=== PATIENT | female | born 1960 | race Caucasian/White ===

== ENCOUNTER 2017-02-04 11:24 | Emergency (ER) | payer MEDICARE ==
[2017-02-25] MEDS ORDERED: ASPIR 8181 MG PO (15:28)
[2017-02-25] MEDS ORDERED: NOVOLOG 10100 UNITS1 INJ (15:47)
[2017-03-09] MEDS ORDERED: LEVEMIR100 UNIT/1 SC (16:12)
[2017-03-09] MEDS ORDERED: BACTROBAN OINT22 GM EXT (16:14)
[2017-03-09] MEDS ORDERED: DAKIN'S SOLUTI500 ML EXT (16:16)
[2017-03-09] MEDS ORDERED: NORCO 5-325 TA1 EACH PO (16:17)
[2017-03-09] MEDS ORDERED: CLINDAMYCIN HC300 MG PO (16:18)
[2017-03-09] MEDS ORDERED: NORVASC 5 MG TAB5 MG PO (16:26)
== END 2017-02-04 12:07 | disposition home or self-care (01) ==
LOC: ER1 11:24
DX: J06.9 Acute upper respiratory infection, unspecified (principal); I10 Essential (primary) hypertension; Z88.0 Allergy status to penicillin
CPT/HCPCS: 99282

== ENCOUNTER 2020-09-14 01:19 | Inpatient (IN) | payer OTHER ==
[~2020-09-14] VITALS: Ht 149.9 cm; Wt 50.8 kg
[~2020-09-14 01:19] MED LIST: ASPIR 8181 MG PO; BACTROBAN OINT22 GM EXT; CLINDAMYCIN HC300 MG PO; LEVEMIR100 UNIT/1 SC; NORCO 5-325 TA1 EACH PO; NORVASC 5 MG TAB5 MG PO; NOVOLOG 10100 UNITS1 INJ; TAMIFLU75 MG PO; ZOFRAN4 MG PO
[2020-09-14 01:43] LABS: HEMOGLOBIN 9.1 gm/dl (12.3-15.3); RED BLOOD COUNT 3.67 M/UL (4.00-5.10)
[2020-09-14 02:27] LABS: BUN/CREATININE RATIO 14 (0-10)
[2020-09-14] MEDS ORDERED: BUSPIRONE HCL5 MG PO (05:12)
[2020-09-14] MEDS ORDERED: ATORVASTATIN CA40 MG PO (05:13)
[2020-09-14] MEDS ORDERED: FERROUS SULFAT325 M2 PO (05:13)
[2020-09-14] MEDS ORDERED: METFORMIN HCL500 MG PO (05:13)
[2020-09-14] MEDS ORDERED: HYDRALAZINE HCL10 MG PO (05:14)
[2020-09-14] MEDS ORDERED: LOSARTAN POTASS50 MG PO (05:15)
[2020-09-14] MEDS ORDERED: K-DUR TAB 20 M20 MEQ PO (05:15)
[2020-09-14] MEDS ORDERED: PROTONIX 40 MG40 M1 PO (05:16)
[2020-09-14] MEDS ORDERED: CEFUROXIME500 MG PO (15:08)
[2020-09-23] MEDS ORDERED: METOPROLOL SUCC25 MG PO (12:30)
[2020-09-23] MEDS ORDERED: LASIX 40 MG TAB40 MG PO (12:34)
[2020-09-23] MEDS ORDERED: DOXYCYCLINE HY100 MG PO (13:00)
== END 2020-09-14 18:37 | disposition home or self-care (01) | DRG 871 ==
LOC: ER1 01:19 → MED SURG 4 02:58 → CDU 02:58 → MED SURG 4 04:18
PROVIDERS: Physician Assistant; ADMIT Internal Medicine
DX: A41.9 Sepsis, unspecified organism (principal); J18.9 Pneumonia, unspecified organism; J90 Pleural effusion, not elsewhere classified; E11.649 Type 2 diabetes mellitus with hypoglycemia without coma; E87.6 Hypokalemia; T68.XXXA Hypothermia, initial encounter; D64.9 Anemia, unspecified; Z20.822 Contact with and (suspected) exposure to COVID-19; Z79.4 Long term (current) use of insulin; Z88.0 Allergy status to penicillin; Z98.890 Other specified postprocedural states
CPT/HCPCS: 36600; 71045; 80053; 82803; 82962; 83036; 83605; 85025; 87040; 87635; 93005; 96374; 99285; J0456; J0692; J0696; J1650; J3480; J7030

== ENCOUNTER 2020-09-21 11:13 | Inpatient (IN) | payer OTHER ==
[~2020-09-21] VITALS: Ht 152.4 cm; Wt 49.9 kg
[~2020-09-21 11:13] MED LIST changes: +ATORVASTATIN CA40 MG PO; +BUSPIRONE HCL5 MG PO; +CEFUROXIME500 MG PO; +FERROUS SULFAT325 M2 PO; +HYDRALAZINE HCL10 MG PO; +K-DUR TAB 20 M20 MEQ PO; +LOSARTAN POTASS50 MG PO; +METFORMIN HCL500 MG PO; +PROTONIX 40 MG40 M1 PO
[2020-09-21 11:54] LABS: HEMOGLOBIN 9.4 gm/dl (12.3-15.3); RED BLOOD COUNT 3.84 M/UL (4.00-5.10); WHITE BLOOD COUNT 11.3 K/UL (4.5-11.0)
[2020-09-21 12:19] LABS: BUN/CREATININE RATIO 14 (0-10)
[2020-09-21] MEDS ORDERED: BASAGLAR K100 UNIT/1 SC (13:56)
[2020-09-21] MEDS ORDERED: DAKIN'S473 M1 EXT (16:16)
[2020-09-22 02:34] LABS: HEMOGLOBIN 8.6 gm/dl (12.3-15.3); RED BLOOD COUNT 3.49 M/UL (4.00-5.10); WHITE BLOOD COUNT 16.1 K/UL (4.5-11.0)
[2020-09-22 03:06] LABS: BUN/CREATININE RATIO 15 (0-10)
[2020-09-22 12:14] LABS: C-PEPTIDE, SERUM 0.4 ng/mL (1.1-4.4); INSULIN 1.5 uIU/mL (2.6-24.9)
[2020-09-23 03:16] LABS: HEMOGLOBIN 8.7 gm/dl (12.3-15.3); RED BLOOD COUNT 3.62 M/UL (4.00-5.10); WHITE BLOOD COUNT 12.3 K/UL (4.5-11.0)
[2020-09-23] MEDS ORDERED: METOPROLOL SUCC25 MG PO (12:30)
[2020-09-23] MEDS ORDERED: LASIX 40 MG TAB40 MG PO (12:34)
[2020-09-23] MEDS ORDERED: DOXYCYCLINE HY100 MG PO (13:00)
--- NOTE | 2020-09-23 14:24 | NUR ---
PATIENT PRESENTLY ON 2-4L/NC O2 IN ROOM SHE HAS BEEN DISCHARGED. O2/NC REMOVED WHILE PATIENT SITTING IN BED. HER O2 SATS DROP TO 84%. PATIENT STATES SHE FEELS SHORT OF BREATH. HER O2 AT 2L/NC IS REPLACED, PATIENT O2 SATS INCREASE TO 90%.
== END 2020-09-23 16:30 | disposition home or self-care (01) | DRG 193 ==
LOC: ER1 11:13 → CDU 13:18 → PROG CARE 22:15
PROVIDERS: Family Medicine; Physician Assistant; ADMIT Internal Medicine
DX: J18.9 Pneumonia, unspecified organism (principal); J96.01 Acute respiratory failure with hypoxia; J90 Pleural effusion, not elsewhere classified; I50.20 Unspecified systolic (congestive) heart failure; T68.XXXA Hypothermia, initial encounter; E11.649 Type 2 diabetes mellitus with hypoglycemia without coma; E87.6 Hypokalemia; E83.42 Hypomagnesemia; I11.0 Hypertensive heart disease with heart failure; I25.10 Atherosclerotic heart disease of native coronary artery without angina pectoris; Z98.61 Coronary angioplasty status; E11.621 Type 2 diabetes mellitus with foot ulcer; L97.519 Non-pressure chronic ulcer of other part of right foot with unspecified severity; Z20.822 Contact with and (suspected) exposure to COVID-19; D53.9 Nutritional anemia, unspecified; Z79.899 Other long term (current) drug therapy; Z79.82 Long term (current) use of aspirin; Z88.0 Allergy status to penicillin; Z79.84 Long term (current) use of oral hypoglycemic drugs
CPT/HCPCS: ECHO; 36600; 71045; 80053; 81001; 82607; 82803; 82962; 83605; 83735; 83880; 84100; 84134; 84439; 84443; 84681; 85025; 85610; 87040; 87086; 93005; 93306; 96365; 96366; 96372; 96375; 96376; 99285; J0696; J1650; J1940; J7030; J7042; U0002

== ENCOUNTER 2020-11-18 08:50 | Inpatient (IN) | payer OTHER ==
[~2020-11-18] VITALS: Ht 167.6 cm; Wt 44.1 kg
[~2020-11-18 08:50] MED LIST changes: +BASAGLAR K100 UNIT/1 SC; +DAKIN'S473 M1 EXT; +DOXYCYCLINE HY100 MG PO; +LASIX 40 MG TAB40 MG PO; +METOPROLOL SUCC25 MG PO
[2020-11-18 10:07] LABS: HEMOGLOBIN 10.7 gm/dl (12.3-15.3); RED BLOOD COUNT 4.71 M/UL (4.00-5.10); WHITE BLOOD COUNT 8.8 K/UL (4.5-11.0)
[2020-11-18 10:51] LABS: BUN/CREATININE RATIO 10 (0-10)
--- NOTE | 2020-11-18 18:54 | NUR ---
11/18/20 1310 TRACIE HUGGER PLACED ON PATIENT.
[2020-11-19 02:52] LABS: HEMOGLOBIN 9.5 gm/dl (12.3-15.3); RED BLOOD COUNT 4.29 M/UL (4.00-5.10); WHITE BLOOD COUNT 10.2 K/UL (4.5-11.0)
--- NOTE | 2020-11-20 01:06 | NUR ---
PATIENTS TEMP AT THE BEGINNING OF SHIFT 95.6 RECTAL. ADDED TEMP SENSING CORD TO STARK FOR CONTINOUS MONITORING. TRACIE DIAZ PLACED BACK ON THE PATIENT WITH WARM BLANKETS.
[2020-11-20 03:10] LABS: HEMOGLOBIN 8.9 gm/dl (12.3-15.3); RED BLOOD COUNT 3.98 M/UL (4.00-5.10); WHITE BLOOD COUNT 8.8 K/UL (4.5-11.0)
[2020-11-20 03:36] LABS: BUN/CREATININE RATIO 12 (0-10)
[2020-11-21 04:06] LABS: HEMOGLOBIN 9.7 gm/dl (12.3-15.3); RED BLOOD COUNT 4.31 M/UL (4.00-5.10); WHITE BLOOD COUNT 10.5 K/UL (4.5-11.0)
[2020-11-21 04:31] LABS: BUN/CREATININE RATIO 13 (0-10)
[2020-11-21 15:11] LABS: BORDETELLA PARAPERTUSSIS Not Detected (Not Detectd); BORDETELLA PERTUSSIS Not Detected (Not Detectd); CHLAMYDIA PNEUMONIAE Not Detected (Not Detectd); CORONAVIRUS HKU1 Not Detected (Not Detectd); CORONAVIRUS NL63 Not Detected (Not Detectd); CORONAVIRUS OC43 Not Detected (Not Detectd); CORONOAVIRUS 229E Not Detected (Not Detectd); HUMAN METAPNEUMOVIRUS Not Detected (Not Detectd); HUMAN RHINOVIRUS/ENTEROVIRUS Not Detected (Not Detectd); INFLUENZA A Not Detected (Not Detectd); INFLUENZA B Not Detected (Not Detectd); MYCOPLASMA PNEUMONIAE Not Detected (Not Detectd); PARAINFLUENZA VIRUS 1 Not Detected (Not Detectd); PARAINFLUENZA VIRUS 2 Not Detected (Not Detectd); PARAINFLUENZA VIRUS 3 Not Detected (Not Detectd); PARAINFLUENZA VIRUS 4 Not Detected (Not Detectd); RESPIRATORY SYNCYTIAL VIRUS Not Detected (Not Detectd)
[2020-11-21 16:40] LABS: SARS-CoV-2 NOT DETECTED (Not Detectd)
[2020-11-22 04:28] LABS: HEMOGLOBIN 9.1 gm/dl (12.3-15.3); RED BLOOD COUNT 4.05 M/UL (4.00-5.10); WHITE BLOOD COUNT 7.1 K/UL (4.5-11.0)
[2020-11-22 05:03] LABS: BUN/CREATININE RATIO 12 (0-10)
[2020-11-22 05:39] LABS: ADENOVIRUS F 40/41 Not Detected (Negative); ASTROVIRUS Not Detected (Negative); CAMPYLOBACTER Not Detected (Negative); CLOSTRIDIUM DIFFICILE TOX A/B Not Detected (Negative); CRYPTOSPORIDIUM Not Detected (Negative); E.COLI 0157 Not Detected (Negative); ENTAMOEBA HISTOLYTICA Not Detected (Negative); ENTEROAGGREGATIVE E.COLI (EAEC Not Detected (Negative); ENTEROPATHOGENIC E.COLI (EPEC) Not Detected (Negative); ENTEROTOXIGENIC E.COLI (ETEC) Not Detected (Negative); GIARDIA LAMBLIA Not Detected (Negative); NOROVIRUS GI/GII Not Detected (Negative); PLESIOMONAS SHIGELLOIDES Not Detected (Negative); ROTOVIRUS A Not Detected (Negative); SALMONELLA Not Detected (Negative); SAPOVIRUS Not Detected (Negative); SHIG/ENTEROINVAS.ECOLI (EIEC) Not Detected (Negative); SHIGA-LIK TOX.PRO.E.COLI (STEC Not Detected (Negative); VIBRIO Not Detected (Negative); VIBRIO CHOLERAE Not Detected (Negative); YERSINIA ENTEROCOLITICA Not Detected (Negative)
[2020-11-22 10:03] LABS: MONONUCLEAR CELLS 75.7 (75-100); POLYMORPHONUCLEAR % 24.3 (0-25); RBC (AUTOMATED) 100 (0-100000); WBC (AUTOMATED) 37 (0-500)
[2020-11-22 10:25] LABS: LDH, BODY FLUID 67 U/L; TOTAL PROTEIN, BODY FLUID 0.8 gm/dL
--- NOTE | 2020-11-22 11:27 | NUR ---
DR. WINTERS CALLED WITH NEW ORDERS TO HOLD PT NPO IN AM PER DR. LIVINGSTON PROCEDURE AND OTHER ORDERS NOTED
--- NOTE | 2020-11-22 14:29 | NUR ---
ON FLOOR AND PT STATES SHE NEVER CHOKED ON FOOD OR FLUID SO STATES TO DC ST CONSULT
[2020-11-23 02:47] LABS: HEMOGLOBIN 9.1 gm/dl (12.3-15.3); RED BLOOD COUNT 4.18 M/UL (4.00-5.10); WHITE BLOOD COUNT 7.1 K/UL (4.5-11.0)
[2020-11-23 03:40] LABS: BUN/CREATININE RATIO 12 (0-10)
[2020-11-24 03:55] LABS: HEMOGLOBIN 9.6 gm/dl (12.3-15.3); RED BLOOD COUNT 4.36 M/UL (4.00-5.10); WHITE BLOOD COUNT 8.2 K/UL (4.5-11.0)
[2020-11-24 04:09] LABS: BUN/CREATININE RATIO 11 (0-10)
[2020-11-25 02:50] LABS: HEMOGLOBIN 9.2 gm/dl (12.3-15.3); RED BLOOD COUNT 4.12 M/UL (4.00-5.10); WHITE BLOOD COUNT 8.7 K/UL (4.5-11.0)
--- NOTE | 2020-11-25 06:26 | NUR ---
PATIENT GOWN AND BED CHANGED. BUTTOCKS VERY RED, GROIN EXCORIATED. ALOE CREAM APPLIED TO THESE AREAS. PATIENT DENIES ANY PAIN. NO SORES PRESENT AT THIS TIME. PATIENT HAS HAD SMALL AMOUNT OF DIARRHEA TONIGHT.
--- NOTE | 2020-11-25 16:50 | NUR ---
ESTELLA AT [facility] CONTACTED AND GIVEN REPORT.
== END 2020-11-25 16:28 | disposition home or self-care (01) | DRG 291 ==
LOC: ER1 08:50 → PROG CARE 11:16 → CDU 11:16 → PROG CARE 13:30
PROVIDERS: Emergency Medicine; Physician Assistant Medical; ADMIT Internal Medicine
PROC: 0W993ZZ Drainage of Right Pleural Cavity, Percutaneous Approach (ICD-10-PCS; principal; 2020-11-22)
DX: I11.0 Hypertensive heart disease with heart failure (principal); E43 Unspecified severe protein-calorie malnutrition; J96.21 Acute and chronic respiratory failure with hypoxia; E11.52 Type 2 diabetes mellitus with diabetic peripheral angiopathy with gangrene; I96 Gangrene, not elsewhere classified; J90 Pleural effusion, not elsewhere classified; L97.419 Non-pressure chronic ulcer of right heel and midfoot with unspecified severity; K52.1 Toxic gastroenteritis and colitis; Z68.41 Body mass index [BMI] 40.0-44.9, adult; M86.8X7 Other osteomyelitis, ankle and foot; E11.69 Type 2 diabetes mellitus with other specified complication; E78.5 Hyperlipidemia, unspecified; I25.10 Atherosclerotic heart disease of native coronary artery without angina pectoris; E87.6 Hypokalemia; D50.9 Iron deficiency anemia, unspecified; E83.42 Hypomagnesemia; I50.23 Acute on chronic systolic (congestive) heart failure; Z20.822 Contact with and (suspected) exposure to COVID-19; I70.0 Atherosclerosis of aorta; E11.621 Type 2 diabetes mellitus with foot ulcer; I44.0 Atrioventricular block, first degree; T68.XXXA Hypothermia, initial encounter; T36.95XA Adverse effect of unspecified systemic antibiotic, initial encounter; E83.52 Hypercalcemia; E88.09 Other disorders of plasma-protein metabolism, not elsewhere classified; Z88.0 Allergy status to penicillin; Z79.4 Long term (current) use of insulin; Z79.82 Long term (current) use of aspirin; Z79.899 Other long term (current) drug therapy; Z87.891 Personal history of nicotine dependence; Z98.890 Other specified postprocedural states; Z88.1 Allergy status to other antibiotic agents; Z95.5 Presence of coronary angioplasty implant and graft
CPT/HCPCS: ECHO; 0240U; 36415; 36600; 70551; 71045; 71046; 71250; 80048; 80053; 81001; 82533; 82550; 82553; 82728; 82803; 82945; 82962; 83540; 83550; 83605; 83615; 83735; 83874; 83880; 83986; 84132; 84155; 84157; 84439; 84443; 84484; 85025; 85027; 86850; 86900; 86901; 87015; 87040; 87070; 87116; 87205; 87206; 87507; 87633; 89051; 93005; 93306; 93925; 94640; 94664; 94760; 96365; 96366; 96375; 97110-GP-CQ; 97116-GP-CQ; 97161; 99285; C1729; J0692; J1205; J1335; J1650; J1940; J2060; J2185; J3370; J3475; J3480; P9047

== ENCOUNTER 2021-01-29 22:19 | Emergency (ER) | payer OTHER ==
[2021-01-30 00:13] LABS: RED BLOOD COUNT 4.35 M/UL (4.00-5.10); WHITE BLOOD COUNT 7.9 K/UL (4.5-11.0)
[2021-01-30 00:56] LABS: BUN/CREATININE RATIO 17 (0-10)
[2021-01-30] MEDS ORDERED: LASIX40 MG PO (02:43)
== END 2021-01-30 03:48 | disposition home or self-care (01) ==
LOC: ER1 22:19
PROVIDERS: Family Medicine
DX: I50.9 Heart failure, unspecified (principal); Z88.0 Allergy status to penicillin; Z88.8 Allergy status to other drugs, medicaments and biological substances
CPT/HCPCS: 71045; 80053; 82550; 82553; 83874; 83880; 84484; 85025; 93005; 96374; 99285; J1940

== ENCOUNTER 2021-01-30 17:27 | Inpatient (IN) | payer OTHER ==
[~2021-01-30] VITALS: Ht 144.8 cm; Wt 53.7 kg
[~2021-01-30 17:27] MED LIST changes: +LASIX40 MG PO
[2021-01-30 18:07] LABS: HEMOGLOBIN 10.9 gm/dl (12.3-15.3); RED BLOOD COUNT 4.77 M/UL (4.00-5.10)
[2021-01-30 18:39] LABS: BUN/CREATININE RATIO 17 (0-10)
[2021-01-31 00:54] LABS: ADENOVIRUS F 40/41 Not Detected (Negative); ASTROVIRUS Not Detected (Negative); CAMPYLOBACTER Not Detected (Negative); CRYPTOSPORIDIUM Not Detected (Negative); E.COLI 0157 Not Detected (Negative); ENTAMOEBA HISTOLYTICA Not Detected (Negative); ENTEROAGGREGATIVE E.COLI (EAEC Not Detected (Negative); ENTEROPATHOGENIC E.COLI (EPEC) Not Detected (Negative); ENTEROTOXIGENIC E.COLI (ETEC) Not Detected (Negative); GIARDIA LAMBLIA Not Detected (Negative); NOROVIRUS GI/GII Not Detected (Negative); PLESIOMONAS SHIGELLOIDES Not Detected (Negative); ROTOVIRUS A Not Detected (Negative); SALMONELLA Not Detected (Negative); SAPOVIRUS Not Detected (Negative); SHIG/ENTEROINVAS.ECOLI (EIEC) Not Detected (Negative); SHIGA-LIK TOX.PRO.E.COLI (STEC Not Detected (Negative); VIBRIO Not Detected (Negative); VIBRIO CHOLERAE Not Detected (Negative); YERSINIA ENTEROCOLITICA Not Detected (Negative)
[2021-01-31 02:29] LABS: HEMOGLOBIN 9.7 gm/dl (12.3-15.3); RED BLOOD COUNT 4.3 M/UL (4.00-5.10); WHITE BLOOD COUNT 8.1 K/UL (4.5-11.0)
[2021-01-31 02:56] LABS: BUN/CREATININE RATIO 15 (0-10)
[2021-01-31 09:36] LABS: CLOSTRIDIUM DIFFICILE TOX A/B DETECTED (Negative)
[2021-02-01 04:28] LABS: HEMOGLOBIN 9.9 gm/dl (12.3-15.3); RED BLOOD COUNT 4.33 M/UL (4.00-5.10)
[2021-02-01 04:52] LABS: BUN/CREATININE RATIO 14 (0-10)
[2021-02-02 09:31] LABS: HEMOGLOBIN 10.2 gm/dl (12.3-15.3); RED BLOOD COUNT 4.5 M/UL (4.00-5.10); WHITE BLOOD COUNT 10.4 K/UL (4.5-11.0)
[2021-02-02] MEDS ORDERED: HYSEPT473 ML TOP (09:41)
[2021-02-02] MEDS ORDERED: VANCOMYCIN HCL125 MG PO (09:41)
[2021-02-02 09:50] LABS: BUN/CREATININE RATIO 15 (0-10)
== END 2021-02-02 23:55 | disposition short-term general hospital (02) | DRG 371 ==
LOC: ER1 17:27 → CDU 19:25 → PROG CARE 19:25
PROVIDERS: Emergency Medicine; Internal Medicine; ADMIT Internal Medicine
DX: A04.72 Enterocolitis due to Clostridium difficile, not specified as recurrent (principal); G93.41 Metabolic encephalopathy; I50.23 Acute on chronic systolic (congestive) heart failure; E11.52 Type 2 diabetes mellitus with diabetic peripheral angiopathy with gangrene; M86.8X7 Other osteomyelitis, ankle and foot; L97.419 Non-pressure chronic ulcer of right heel and midfoot with unspecified severity; N39.0 Urinary tract infection, site not specified; E27.40 Unspecified adrenocortical insufficiency; J96.11 Chronic respiratory failure with hypoxia; L97.529 Non-pressure chronic ulcer of other part of left foot with unspecified severity; Z20.822 Contact with and (suspected) exposure to COVID-19; I25.10 Atherosclerotic heart disease of native coronary artery without angina pectoris; I44.0 Atrioventricular block, first degree; D50.9 Iron deficiency anemia, unspecified; E88.09 Other disorders of plasma-protein metabolism, not elsewhere classified; E78.00 Pure hypercholesterolemia, unspecified; R33.9 Retention of urine, unspecified; B96.1 Klebsiella pneumoniae [K. pneumoniae] as the cause of diseases classified elsewhere; E02 Subclinical iodine-deficiency hypothyroidism; E11.65 Type 2 diabetes mellitus with hyperglycemia; E83.42 Hypomagnesemia; I35.8 Other nonrheumatic aortic valve disorders; E11.621 Type 2 diabetes mellitus with foot ulcer; G83.30 Monoplegia, unspecified affecting unspecified side; Z79.4 Long term (current) use of insulin
CPT/HCPCS: 0240U; 36415; 70450; 71045; 73630; 80048; 80053; 80202; 80307; 81001; 82533; 82550; 82553; 82962; 83036; 83605; 83690; 83735; 83874; 83880; 84132; 84439; 84443; 84484; 85025; 85027; 86140; 87040; 87077; 87086; 87186; 87324; 87449; 87507; 93005; 93925; 96372; 96374; 96375; 99285; J1650; J1940; J2185; J3370; J3475; J7070